=== PATIENT | female | born 1950 | race Caucasian/White ===

== ENCOUNTER 2019-03-02 07:04 | Day surgery (SDC) | payer OTHER ==
[2019-03-01 14:06] VITALS: BMI 30.9
[2019-03-02 09:01] VITALS: PULSE 62
[2019-03-02 11:54] VITALS: BP 110/57; TEMP 98.2
--- NOTE | 2019-03-03 17:17 | PATH ---
Surgical Pathology Report Patient Name: DAREK SARABIA [facility]. Rec. #: [id number] /Age/Gender: 1950 (Age: 68) / F Account: [id number] Location: [facility]-ENDOSCOPY Taken: 03/02/2019 Received: 03/02/2019 Reported: 03/03/2019 Physicians: Volodymyr Connor M.D. Specimen(s) Received A: CECUM POLYPS B: LEFT COLON POLYP Clinical History History of colon polyp Postoperative diagnosis: Colon polyps Final Diagnosis A. CECUM, POLYPS, POLYPECTOMY: TUBULAR ADENOMA(S). B. COLON, LEFT, POLYPECTOMY: TUBULAR ADENOMA. Electronically Signed Jessica Hummel M.D. Gross Description A. Received in formalin, labeled "polyps from cecum" are 6 parsons, irregular portions of soft tissue ranging in size from 0.2-0.7 cm. in greatest dimension. The specimens are submitted in toto in one cassette. B. Received in formalin, labeled "left colon polyp" is a parsons, irregular portion of soft tissue measuring 0.2 cm. in greatest dimension. The specimen is submitted in toto in one cassette. MLSZ/03/02/2019 sanml/03/02/2019
== END 2019-03-02 10:45 | disposition home or self-care (01) ==
LOC: JASU-ENDO 07:04
PROVIDERS: ATTEND Internal Medicine Gastroenterology
PROC: 0DBH8ZX Excision of Cecum, Via Natural or Artificial Opening Endoscopic, Diagnostic (ICD-10-PCS; 2019-03-02)
PROC: 0DBM8ZX Excision of Descending Colon, Via Natural or Artificial Opening Endoscopic, Diagnostic (ICD-10-PCS; 2019-03-02)
PROC: 0DBH8ZX Excision of Cecum, Via Natural or Artificial Opening Endoscopic, Diagnostic (ICD-10-PCS; principal; 2019-03-02 08:00)
DX: Z86.010 Personal history of colon polyps (principal); D12.0 Benign neoplasm of cecum; D12.4 Benign neoplasm of descending colon; E03.9 Hypothyroidism, unspecified
CPT/HCPCS: 88305-TC

== ENCOUNTER 2022-02-07 05:39 | Day surgery (SDC) | payer OTHER ==
[2022-02-05 11:09] VITALS: BMI 33.2
[2022-02-07] MEDS ORDERED: LACTATED RINGERS SOLUTION 1,000 ML IV SCH (07:15)
[2022-02-07] MEDS ORDERED: ACETAMINOPHEN 325 MG TABLET (FP) PO PRN (07:15)
[2022-02-07 09:26] VITALS: TEMP 97
[2022-02-07 10:28] VITALS: BP 104/54; PULSE 77; RESP 16
== END 2022-02-07 10:28 | disposition home or self-care (01) ==
LOC: JASU-ENDO 05:39
PROVIDERS: ATTEND Internal Medicine Gastroenterology
PROC: 0DBM8ZX Excision of Descending Colon, Via Natural or Artificial Opening Endoscopic, Diagnostic (ICD-10-PCS; principal; 2022-02-07 09:00)
DX: Z12.11 Encounter for screening for malignant neoplasm of colon (principal); D12.4 Benign neoplasm of descending colon; Z86.010 Personal history of colon polyps
CPT/HCPCS: 88305-TC